=== PATIENT | female | born 1965 | race African-American/Black ===

== ENCOUNTER 2018-08-24 12:30 | Inpatient (IN) | payer OTHER ==
[2018-08-24 14:52] VITALS: BMI 46.7
--- NOTE | 2018-08-24 16:17 | HP ---
CIWA Score - Admission Criteria OASAS Guidelines: Admission for Medically Managed Detox: Requires at least one of the followin. CIWA greater than 12 2. Seizures within the past 24 hours 3. Delirium tremens within the past 24 hours 4. Hallucinations within the past 24 hours 5. Acute intervention needed for co occurring medical disorder 6. Acute intervention needed for co occurring psychiatric disorder 7. Severe withdrawal that cannot be handled at a lower level of care (continued vomiting, continued diarrhea, abnormal vital signs) requiring intravenous medication and/or fluids 8. Admission ROS BHS - HPI Allergies/Adverse Reactions: Allergies Allergy/AdvReac Type Severity Reaction Status Date / Time banana Allergy Verified 08/24/18 14:27 Penicillins Allergy Verified 08/24/18 14:28 tomato Allergy Verified 08/24/18 14:28 History of Present Illness: pt here requesting rehab from etoh and cocaine use , went to hospital after feeling dizy , reports drinking 1/5 or more daily x 3 months , prior use occasional , cocaine use - " I didn't use much " . completed detox @ [facility], has d/c paperwork indicating dates of admission 08/21/18 - 08/24/18 for dyspnea tobacco - 1/2 ppd every other day . pmhx : chronic back pain , asthma , hld , gerd , PShx : left shoulder rtx 2018 psych : PTSD , SAD , depression , denies current SI / HI , past suicide attempt 18 mo ago by choking Exam Limitations: No Limitations - Ebola screening Have you traveled outside of the country in the last 21 days: No Have you had contact with anyone from an Ebola affected area: No - Review of Systems Constitutional: No Symptoms Reported EENT: reports: No Symptoms Reported Respiratory: reports: Shortness of Breath Cardiac: reports: No Symptoms Reported GI: reports: No Symptoms Reported : reports: No Symptoms Reported Musculoskeletal: reports: See HPI, Back Pain Integumentary: reports: No Symptoms Reported Neuro: reports: No Symptoms reported Endocrine: reports: No Symptoms Reported Psychiatric: reports: Orientated x3, Agitated, Anxious Patient History - Smoking Cessation Smoking history: Current some day smoker Have you smoked in the past 12 months: Yes Hx Chewing Tobacco Use: No Initiated information on smoking cessation: No - Substances abused Alcohol Substance route: Oral Frequency: Daily Amount used: 05/20 vodka, 1 pt. rum, 1 pt. stephanie Age of first use: 13 Date of last use: 08/21/18 Cocaine Substance route: Smoking Frequency: Daily Amount used: $100 Age of first use: 15 Date of last use: 08/21/18 Crack Substance route: Smoking Frequency: 3-6 times per week Amount used: $400 Age of first use: 15 Date of last use: 08/21/18 Family Disease History - Family Disease History Family Disease History: Diabetes: Mother, Heart Disease: Father Admission Physical Exam [facility] - Vital Signs Vital Signs: Vital Signs - 24 hr 08/24/18 14:42 Temperature 98 F Pulse Rate 80 Respiratory 18 Rate Blood Pressure 129/86 - Physical General Appearance: Yes: Irritable HEENTM: Yes: EOMI, Hearing grossly Normal, Normocephalic, Normal Voice Respiratory: Yes: Chest Non-Tender, Lungs Clear, Decreased Breath Sounds Neck: Yes: No masses,lesions,Nodules, Trachea in good position Cardiology: Yes: Regular Rhythm, Regular Rate, S1, S2 Abdominal: Yes: Soft, Protuberent Genitourinary: Yes: Within Normal Limits Back: Yes: Normal Inspection, Muscle Spasm Musculoskeletal: Yes: Back pain, Muscle Pain, Other (using walker for ambulation) Extremities: Yes: Non-Tender Neurological: Yes: Fully Oriented, Alert, Motor Strength 5/5 Integumentary: Yes: Normal Color, Warm - Diagnostic (1) Alcohol abuse Current Visit: Yes Status: Acute (2) Cocaine abuse Current Visit: Yes Status: Chronic (3) Nicotine dependence Current Visit: Yes Status: Chronic Qualifiers: Nicotine product type: cigarettes Breathalyzer - Breathalyzer Breathalyzer: 0 Urine Drug Screen - Test Device Lot number: [id number] Expiration date: 04/14/20 - Control Is test valid?: Yes - Results Drug screen NEGATIVE: No Urine drug screen results: PK-Cocaine, BZO-Benzodiazepines Inpatient Rehab Admission - Rehab Decision to Admit Inpatient rehab admission?: Yes - Initial Determination Are CD services needed?: Yes Free of communicable disease: Yes Not in need of hospitalization: Yes - Rehab Admission Criteria Previous failed treatment: No Poor recovery environment: No Comorbidities: No Lacks judgement: Yes Patient is meeting Inpatient Rehab admission criteria:: Yes
[2018-08-24] MEDS ORDERED: MAGNESIUM HYDROX 2400MG/30ML ORAL SUSPENSION 30 ML CUP PO PRN (16:24)
[2018-08-24] MEDS ORDERED: MENTHOL/PHENOL 1 EACH UD MM PRN (16:24)
[2018-08-24] MEDS ORDERED: MAGNESIUM CITRATE 300 ML BOTTLE PO PRN (16:24)
[2018-08-24] MEDS ORDERED: MAG HYDROX/AL HYDROX/SIMETH 30 ML UNIT-DOSE CUP PO PRN (16:24)
[2018-08-24] MEDS ORDERED: ACETAMINOPHEN 325 MG TABLET (FP) PO PRN (16:24)
[2018-08-24] MEDS ORDERED: NICOTINE POLACRILEX 2 MG GUM BC PRN (16:24)
[2018-08-24] MEDS ORDERED: P-EPHED 60MG/TRIPROLIDI 2.5MG TABLET PO PRN (16:24)
[2018-08-24] MEDS ORDERED: guaiFENesin 200 MG/10 ML 10 ML UNIT-DOSE CUPS PO PRN (16:24)
[2018-08-24] MEDS ORDERED: ALBUTEROL SO4 0.083% IH SOL 2.5 MG/3 ML VIAL.NEB. NEB PRN (16:26)
[2018-08-24] MEDS ORDERED: TUBERCULIN PPD 5 TU/0.1ML VIAL ID ONE (18:02)
[2018-08-24] MEDS: CYCLOBENZAPRINE HCL 10 MG TABLET (FP) PO PRN (21:39)
[2018-08-24] MEDS: THIAMINE HCL 100 MG TABLET (FP) PO SCH (21:39)
[2018-08-24] MEDS: traZODone HCL 100 MG TABLET (FP) PO SCH (21:39)
[2018-08-24] MEDS: ATORVASTATIN CA 40 MG TABLET (FP) PO SCH (21:39)
[2018-08-24] MEDS: GABAPENTIN 300 MG CAPSULE (FP) PO SCH (21:39)
[2018-08-24] MEDS ORDERED: MELATONIN 5 MG TABLETS PO PRN (22:00)
[2018-08-24 23:32] LABS: PH,URINE 5.5 (5.0-8.0); URINE APPEARANCE Clear; URINE BILIRUBIN Negative (NEGATIVE); URINE COLOR Yellow; URINE GLUCOSE (UA) Negative (NEGATIVE); URINE KETONE Negative (NEGATIVE); URINE LEUK ESTERASE 1+ (NEGATIVE); URINE NITRITE Negative (NEGATIVE); URINE PROTEIN Negative (NEGATIVE); URINE UROBILINOGEN 0.2 mg/dL (0.2-1.0)
[2018-08-24 23:55] LABS: URINE BACTERIA FEW /hpf (NEGATIVE); URINE RBC 0 /hpf (0-4)
[2018-08-25] MEDS: GABAPENTIN 300 MG CAPSULE (FP) PO SCH ×3 (06:39→21:04)
[2018-08-25] MEDS: PANTOPRAZOLE 40 MG TABLET (FP) PO SCH (09:24)
[2018-08-25] MEDS: PRENATAL VITAMINS W/ FOLIC ACID TABLET (FP) PO SCH (09:24)
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
[2018-08-25 09:49] LABS: HEMATOCRIT 45.1 % (32.4-45.2); HEMOGLOBIN 14.9 GM/dL (10.7-15.3); MCH 32.6 pg (25.7-33.7); MCHC 33.1 g/dl (32.0-36.0); MEAN CELL VOLUME 98.5 fl (80-96); MEAN PLT VOLUME 9.3 fl (7.5-11.1); PLATELET COUNT 233 K/MM3 (134-434); RBC 4.58 M/mm3 (3.60-5.2); RDW 14.7 % (11.6-15.6); WHITE BLOOD COUNT 8.7 K/mm3 (4.0-10.0)
[2018-08-25] MEDS ORDERED: FAMOTIDINE 40 MG PO SCH (10:00)
[2018-08-25 10:13] LABS: ALBUMIN 3.7 g/dl (3.4-5.0); ALK PHOS 96 U/L (45-117); ANION GAP 7 MMOL/L (8-16); BILIRUBIN,TOTAL 0.5 mg/dL (0.2-1); BLOOD UREA NITROGEN 19 mg/dL (7-18); CALCIUM 9.1 mg/dL (8.5-10.1); CHLORIDE 106 mmol/L (98-107); CO2 29 mmol/L (21-32); CREATININE 0.9 mg/dL (0.55-1.3); GLUCOSE,RANDOM 153 mg/dL (74-106); POTASSIUM 4.1 mmol/L (3.5-5.1); SGOT/AST 17 U/L (15-37); SGPT/ALT 25 U/L (13-61); SODIUM 142 mmol/L (136-145); TOT PROT 6.8 g/dl (6.4-8.2)
--- NOTE | 2018-08-25 10:26 | EKG ---
Test Reason : Blood Pressure : / mmHG Vent. Rate : 077 BPM Atrial Rate : 077 BPM P-R Int : 124 ms QRS Dur : 086 ms QT Int : 406 ms P-R-T Axes : 056 056 051 degrees QTc Int : 459 ms NORMAL SINUS RHYTHM NORMAL ECG NO PREVIOUS ECGS AVAILABLE Confirmed by MAURIZIO BARRETT, MAX ([id number]) on 08/25/2018 10:26:44 AM Referred By: Confirmed By:MAX STEVEN MD
[2018-08-25] MEDS: SERTRALINE HCL 50 MG TABLET (FP) PO SCH (10:36)
[2018-08-25] MEDS: PERPHENAZINE 4 MG TABLET PO SCH ×2 (10:57→21:04)
--- NOTE | 2018-08-25 16:43 | PN ---
[facility] Progress Note Note: PATIENT SEEN FOR C/O BURNING AND PAIN UPON URINATION. PATIENT STATES URINE IS FOUL SMELLING (FISHY ODOR) AND REPORTS FREQUENT SMALL EPISODES OF URINATION. PATIENT DENIES FEVER AND BACK PAIN. Vital Signs Temperature 97.1 F L 08/25/18 06:54 Pulse Rate 86 08/25/18 06:54 Respiratory Rate 18 08/25/18 06:54 Blood Pressure 117/79 08/25/18 06:54 O2 Sat by Pulse Oximetry (%) Laboratory Tests 08/24/18 08/25/18 08/25/18 22:03 08:15 08:15 WBC 8.7 RBC 4.58 Hgb 14.9 Hct 45.1 MCV 98.5 H MCH 32.6 MCHC 33.1 RDW 14.7 Plt Count 233 MPV 9.3 Sodium 142 Potassium 4.1 Chloride 106 Carbon Dioxide 29 Anion Gap 7 L BUN 19 H Creatinine 0.9 Creat Clearance w eGFR 65.01 Random Glucose 153 H Calcium 9.1 Total Bilirubin 0.5 AST 17 ALT 25 Alkaline Phosphatase 96 Total Protein 6.8 Albumin 3.7 Urine Color Yellow Urine Appearance Clear Urine pH 5.5 Ur Specific [place] 1.020 Urine Protein Negative Urine Glucose (UA) Negative Urine Ketones Negative Urine Blood Negative Urine Nitrite Negative Urine Bilirubin Negative Urine Urobilinogen 0.2 Ur Leukocyte Esterase 1+ H Urine WBC (Auto) 2-5 Urine RBC (Auto) 0 U Epithel Cells (Auto) 2-5 Urine Bacteria (Auto) Few RPR Titer 08/25/18 08:15 WBC RBC Hgb Hct MCV MCH MCHC RDW Plt Count MPV Sodium Potassium Chloride Carbon Dioxide Anion Gap BUN Creatinine Creat Clearance w eGFR Random Glucose Calcium Total Bilirubin AST ALT Alkaline Phosphatase Total Protein Albumin Urine Color Urine Appearance Urine pH Ur Specific [place] Urine Protein Urine Glucose (UA) Urine Ketones Urine Blood Urine Nitrite Urine Bilirubin Urine Urobilinogen Ur Leukocyte Esterase Urine WBC (Auto) Urine RBC (Auto) U Epithel Cells (Auto) Urine Bacteria (Auto) RPR Titer Nonreactive PE: ALERT AND ORIENTED X 3 SKIN WARM AND DRY GI SOFT, NT, NO PELVIC TENDERNESS NEG CVAT EXT AMB WITH WALKER A/P: DYSURIA MALODOROUS URINE URINE CULTURE ORDERED ENCOURAGE ORAL FLUIDS START BACTRIM DS EMPIRICALLY ONE TAB BID X 3 DAYS CONTINUE TO MONITOR CLINICALLY
[2018-08-25] MEDS ORDERED: SULFAMETHOXAZOLE/TRIMETHOPRIM 800MG/160MG D.S. TABLET PO SCH (16:45)
[2018-08-25] MEDS: NAPROXEN 500 MG TABLET (FP) PO PRN (17:17)
[2018-08-25] MEDS ORDERED: PT OWN MED DRAWER 7, Y5N ONE (19:19)
[2018-08-25] MEDS: SULFAMETHOXAZOLE/TRIMETHOPRIM 800MG/160MG D.S. TABLET PO SCH (21:03)
[2018-08-25] MEDS: ATORVASTATIN CA 40 MG TABLET (FP) PO SCH (21:04)
[2018-08-25] MEDS: THIAMINE HCL 100 MG TABLET (FP) PO SCH (21:04)
[2018-08-25] MEDS: traZODone HCL 100 MG TABLET (FP) PO SCH (21:04)
[2018-08-26] MEDS: GABAPENTIN 300 MG CAPSULE (FP) PO SCH ×3 (06:44→21:53)
[2018-08-26] MEDS: ARTIFICIAL TEARS (POLYVINYL ALCOHOL) OPTH DROPS OU PRN (09:49)
[2018-08-26] MEDS: PRENATAL VITAMINS W/ FOLIC ACID TABLET (FP) PO SCH (09:50)
[2018-08-26] MEDS: SERTRALINE HCL 50 MG TABLET (FP) PO SCH (09:50)
[2018-08-26] MEDS: PANTOPRAZOLE 40 MG TABLET (FP) PO SCH (09:50)
[2018-08-26] MEDS: SULFAMETHOXAZOLE/TRIMETHOPRIM 800MG/160MG D.S. TABLET PO SCH ×2 (09:50→21:53)
[2018-08-26] MEDS: PERPHENAZINE 4 MG TABLET PO SCH ×2 (09:51→21:55)
[2018-08-26] MEDS: NAPROXEN 500 MG TABLET (FP) PO PRN (13:43)
[2018-08-26] MEDS: CYCLOBENZAPRINE HCL 10 MG TABLET (FP) PO PRN (13:43)
[2018-08-26] MEDS: ATORVASTATIN CA 40 MG TABLET (FP) PO SCH (21:53)
[2018-08-26] MEDS: traZODone HCL 100 MG TABLET (FP) PO SCH (21:53)
[2018-08-26] MEDS: THIAMINE HCL 100 MG TABLET (FP) PO SCH (21:55)
[2018-08-27] MEDS: GABAPENTIN 300 MG CAPSULE (FP) PO SCH ×3 (06:47→21:24)
[2018-08-27] MEDS: NAPROXEN 500 MG TABLET (FP) PO PRN ×2 (09:35→21:24)
[2018-08-27] MEDS: PANTOPRAZOLE 40 MG TABLET (FP) PO SCH (09:35)
[2018-08-27] MEDS: PRENATAL VITAMINS W/ FOLIC ACID TABLET (FP) PO SCH (09:35)
[2018-08-27] MEDS: SERTRALINE HCL 50 MG TABLET (FP) PO SCH (09:36)
[2018-08-27] MEDS: SULFAMETHOXAZOLE/TRIMETHOPRIM 800MG/160MG D.S. TABLET PO SCH ×2 (09:36→21:24)
[2018-08-27] MEDS: PERPHENAZINE 4 MG TABLET PO SCH ×2 (09:37→21:25)
[2018-08-27] MEDS ORDERED: PT OWN MED DRAWER 7, Y5N ONE ×2 (09:37)
[2018-08-27] MEDS: CYCLOBENZAPRINE HCL 10 MG TABLET (FP) PO PRN (21:24)
[2018-08-27] MEDS: THIAMINE HCL 100 MG TABLET (FP) PO SCH (21:24)
[2018-08-27] MEDS: traZODone HCL 100 MG TABLET (FP) PO SCH (21:24)
[2018-08-27] MEDS: ATORVASTATIN CA 40 MG TABLET (FP) PO SCH (21:24)
[2018-08-28] MEDS: GABAPENTIN 300 MG CAPSULE (FP) PO SCH ×3 (06:45→21:25)
[2018-08-28] MEDS ORDERED: PT OWN MED DRAWER 7, Y5N ONE ×2 (08:28→21:29)
[2018-08-28] MEDS: ARTIFICIAL TEARS (POLYVINYL ALCOHOL) OPTH DROPS OU PRN (09:33)
[2018-08-28] MEDS: SULFAMETHOXAZOLE/TRIMETHOPRIM 800MG/160MG D.S. TABLET PO SCH (09:34)
[2018-08-28] MEDS: PANTOPRAZOLE 40 MG TABLET (FP) PO SCH (09:34)
[2018-08-28] MEDS: SERTRALINE HCL 50 MG TABLET (FP) PO SCH (09:34)
[2018-08-28] MEDS: PRENATAL VITAMINS W/ FOLIC ACID TABLET (FP) PO SCH (09:34)
[2018-08-28] MEDS: PERPHENAZINE 4 MG TABLET PO SCH ×2 (09:34→21:30)
--- NOTE | 2018-08-28 14:02 | PN ---
[facility] Progress Note Note: PATIENT SEEN TO FOLLOW UP DYSURIA. PATIENT STATES SHE FEELS BETTER. DENIES VAGINAL DISCHARGE AND BURNING UPON URINATION. Vital Signs Temperature 98.0 F 08/27/18 07:03 Pulse Rate 85 08/27/18 07:03 Respiratory Rate 18 08/28/18 03:30 Blood Pressure 131/88 08/27/18 07:03 O2 Sat by Pulse Oximetry (%) Laboratory Tests 08/24/18 08/25/18 08/25/18 22:03 08:15 08:15 WBC 8.7 RBC 4.58 Hgb 14.9 Hct 45.1 MCV 98.5 H MCH 32.6 MCHC 33.1 RDW 14.7 Plt Count 233 MPV 9.3 Sodium 142 Potassium 4.1 Chloride 106 Carbon Dioxide 29 Anion Gap 7 L BUN 19 H Creatinine 0.9 Creat Clearance w eGFR 65.01 Random Glucose 153 H Calcium 9.1 Total Bilirubin 0.5 AST 17 ALT 25 Alkaline Phosphatase 96 Total Protein 6.8 Albumin 3.7 Urine Color Yellow Urine Appearance Clear Urine pH 5.5 Ur Specific [place] 1.020 Urine Protein Negative Urine Glucose (UA) Negative Urine Ketones Negative Urine Blood Negative Urine Nitrite Negative Urine Bilirubin Negative Urine Urobilinogen 0.2 Ur Leukocyte Esterase 1+ H Urine WBC (Auto) 2-5 Urine RBC (Auto) 0 U Epithel Cells (Auto) 2-5 Urine Bacteria (Auto) Few RPR Titer 08/25/18 08:15 WBC RBC Hgb Hct MCV MCH MCHC RDW Plt Count MPV Sodium Potassium Chloride Carbon Dioxide Anion Gap BUN Creatinine Creat Clearance w eGFR Random Glucose Calcium Total Bilirubin AST ALT Alkaline Phosphatase Total Protein Albumin Urine Color Urine Appearance Urine pH Ur Specific [place] Urine Protein Urine Glucose (UA) Urine Ketones Urine Blood Urine Nitrite Urine Bilirubin Urine Urobilinogen Ur Leukocyte Esterase Urine WBC (Auto) Urine RBC (Auto) U Epithel Cells (Auto) Urine Bacteria (Auto) RPR Titer Nonreactive PE; ALERT AND ORIENTED X 3 SKIN WARM AND DRY GI SOFT, NT, ND NEG CVAT EXT AMB AD ROSALIA WITH WALKER A/P: DYSURIA RESOLVED ENCOURAGE FLUIDS BACTRIM CONTINUED ORDERED URINE CULTURE LESS THAN 10,000 COLONIES NO FURTHER TREATMENT WARRANTED
[2018-08-28] MEDS: traZODone HCL 100 MG TABLET (FP) PO SCH (21:25)
[2018-08-28] MEDS: CYCLOBENZAPRINE HCL 10 MG TABLET (FP) PO PRN (21:25)
[2018-08-28] MEDS: ATORVASTATIN CA 40 MG TABLET (FP) PO SCH (21:25)
[2018-08-28] MEDS: THIAMINE HCL 100 MG TABLET (FP) PO SCH (21:25)
[2018-08-28] MEDS: NAPROXEN 500 MG TABLET (FP) PO PRN (21:26)
[2018-08-29] MEDS: GABAPENTIN 300 MG CAPSULE (FP) PO SCH ×3 (06:33→21:25)
[2018-08-29] MEDS ORDERED: PT OWN MED DRAWER 7, Y5N ONE (08:41)
[2018-08-29] MEDS: NAPROXEN 500 MG TABLET (FP) PO PRN ×2 (09:53→21:25)
[2018-08-29] MEDS: PRENATAL VITAMINS W/ FOLIC ACID TABLET (FP) PO SCH (10:28)
[2018-08-29] MEDS: SERTRALINE HCL 50 MG TABLET (FP) PO SCH (10:29)
[2018-08-29] MEDS: PERPHENAZINE 4 MG TABLET PO SCH ×2 (10:29→21:25)
[2018-08-29] MEDS: PANTOPRAZOLE 40 MG TABLET (FP) PO SCH (10:29)
[2018-08-29] MEDS: traZODone HCL 100 MG TABLET (FP) PO SCH (21:25)
[2018-08-29] MEDS: THIAMINE HCL 100 MG TABLET (FP) PO SCH (21:25)
[2018-08-29] MEDS: CYCLOBENZAPRINE HCL 10 MG TABLET (FP) PO PRN (21:25)
[2018-08-29] MEDS: ATORVASTATIN CA 40 MG TABLET (FP) PO SCH (21:25)
[2018-08-30] MEDS: GABAPENTIN 300 MG CAPSULE (FP) PO SCH ×3 (06:39→21:40)
[2018-08-30] MEDS ORDERED: PT OWN MED DRAWER 7, Y5N ONE ×2 (08:52→13:41)
[2018-08-30] MEDS: PRENATAL VITAMINS W/ FOLIC ACID TABLET (FP) PO SCH (09:47)
[2018-08-30] MEDS: PERPHENAZINE 4 MG TABLET PO SCH ×2 (09:47→21:40)
[2018-08-30] MEDS: SERTRALINE HCL 50 MG TABLET (FP) PO SCH (09:48)
[2018-08-30] MEDS: PANTOPRAZOLE 40 MG TABLET (FP) PO SCH (09:48)
[2018-08-30] MEDS: NAPROXEN 500 MG TABLET (FP) PO PRN ×2 (09:49→21:40)
[2018-08-30] MEDS: CYCLOBENZAPRINE HCL 10 MG TABLET (FP) PO PRN ×2 (09:49→21:40)
[2018-08-30] MEDS ORDERED: MINERAL OIL/PETROLAT/WATER TOPICAL CREAM 454 GM JAR TP PRN (10:35)
[2018-08-30] MEDS ORDERED: MINERAL OIL/PETROLAT/WATER TOPICAL CREAM 113 GM JAR TP PRN (11:15)
[2018-08-30] MEDS: THIAMINE HCL 100 MG TABLET (FP) PO SCH (21:39)
[2018-08-30] MEDS: ATORVASTATIN CA 40 MG TABLET (FP) PO SCH (21:40)
[2018-08-30] MEDS: traZODone HCL 100 MG TABLET (FP) PO SCH (21:40)
[2018-08-31] MEDS: GABAPENTIN 300 MG CAPSULE (FP) PO SCH ×3 (06:42→21:40)
[2018-08-31] MEDS ORDERED: PT OWN MED DRAWER 7, Y5N ONE ×2 (08:40→21:43)
[2018-08-31] MEDS: PERPHENAZINE 4 MG TABLET PO SCH ×2 (09:39→21:42)
[2018-08-31] MEDS: PRENATAL VITAMINS W/ FOLIC ACID TABLET (FP) PO SCH (09:39)
[2018-08-31] MEDS: SERTRALINE HCL 50 MG TABLET (FP) PO SCH (09:39)
[2018-08-31] MEDS: PANTOPRAZOLE 40 MG TABLET (FP) PO SCH (09:39)
[2018-08-31] MEDS: NAPROXEN 500 MG TABLET (FP) PO PRN ×2 (09:40→21:41)
[2018-08-31] MEDS: LIDOCAINE 5% TOPICAL PATCH TP SCH (12:32)
[2018-08-31] MEDS: traZODone HCL 100 MG TABLET (FP) PO SCH (21:40)
[2018-08-31] MEDS: THIAMINE HCL 100 MG TABLET (FP) PO SCH (21:40)
[2018-08-31] MEDS: ATORVASTATIN CA 40 MG TABLET (FP) PO SCH (21:41)
[2018-08-31] MEDS: CYCLOBENZAPRINE HCL 10 MG TABLET (FP) PO PRN (21:41)
[2018-08-31] MEDS ORDERED: LIDOCAINE PATCH REMOVAL MC SCH (22:00)
[2018-09-01] MEDS: GABAPENTIN 300 MG CAPSULE (FP) PO SCH (06:21)
[2018-09-01 07:06] VITALS: BP 111/77; PULSE 80; TEMP 97.9
[2018-09-01] MEDS: PERPHENAZINE 4 MG TABLET PO SCH (09:30)
[2018-09-01] MEDS: PANTOPRAZOLE 40 MG TABLET (FP) PO SCH (09:30)
[2018-09-01] MEDS: PRENATAL VITAMINS W/ FOLIC ACID TABLET (FP) PO SCH (09:30)
[2018-09-01] MEDS: LIDOCAINE 5% TOPICAL PATCH TP SCH (09:30)
[2018-09-01] MEDS: SERTRALINE HCL 50 MG TABLET (FP) PO SCH (09:30)
--- NOTE | 2018-09-01 11:21 | PN ---
[facility] Progress Note Note: PT REQUESTED FOR EARLY DISCHARGE FROM REHAB TODAY. PT MET WITH MS HNERIQUE DAVID, CLINICAL SUPPORT NURSE AND PT HAS BEEN REFERRED BACK TO [facility] OPD PROGRAM. REPORTS SHE HAS A PCP, DR. MAEGAN MEDEROS WHO SHE WILL BE SEEING TODAY AFTER DISCHARGE HERE. PT REPORTS SHE HAS ALL HER MEDS DOWN IN HER SECURITY PROPERTY. ALERT O X 3. DENIES S/H/I. Home Medications Medication Instructions Recorded Atorvastatin Ca [Lipitor] 40 mg PO HS 08/24/18 Cyclobenzaprine HCl [Flexeril 10 10 mg PO BID PRN 08/24/18 mg] Dextran 70/Hypromellose 30 ml OP PRN 08/24/18 [Artificials Tears Drops] Diclofenac Sodium 75 mg PO BID 08/24/18 Famotidine [Heartburn Prevention] 40 mg PO DAILY 08/24/18 Gabapentin 300 mg PO TID 08/24/18 Naproxen [Naprosyn] 500 mg PO PRN 08/24/18 Perphenazine 8 mg PO BID 08/24/18 Sertraline HCl 100 mg PO DAILY 08/24/18 Tramadol HCl 50 mg PO TID 08/24/18 traZODone HCL [Trazodone HCl] 100 mg PO HS 08/24/18 Vital Signs 09/01/18 09/01/18 03:30 06:30 Temperature 97.9 F Pulse Rate 80 Respiratory 18 18 Rate Blood Pressure 111/77 Laboratory Tests 08/24/18 08/25/18 08/25/18 22:03 08:15 08:15 WBC 8.7 RBC 4.58 Hgb 14.9 Hct 45.1 MCV 98.5 H MCH 32.6 MCHC 33.1 RDW 14.7 Plt Count 233 MPV 9.3 Sodium 142 Potassium 4.1 Chloride 106 Carbon Dioxide 29 Anion Gap 7 L BUN 19 H Creatinine 0.9 Creat Clearance w eGFR 65.01 POC Glucometer Random Glucose 153 H Calcium 9.1 Total Bilirubin 0.5 AST 17 ALT 25 Alkaline Phosphatase 96 Total Protein 6.8 Albumin 3.7 Urine Color Yellow Urine Appearance Clear Urine pH 5.5 Ur Specific [place] 1.020 Urine Protein Negative Urine Glucose (UA) Negative Urine Ketones Negative Urine Blood Negative Urine Nitrite Negative Urine Bilirubin Negative Urine Urobilinogen 0.2 Ur Leukocyte Esterase 1+ H Urine WBC (Auto) 2-5 Urine RBC (Auto) 0 U Epithel Cells (Auto) 2-5 Urine Bacteria (Auto) Few RPR Titer 08/25/18 08/29/18 08/30/18 08:15 06:29 06:38 WBC RBC Hgb Hct MCV MCH MCHC RDW Plt Count MPV Sodium Potassium Chloride Carbon Dioxide Anion Gap BUN Creatinine Creat Clearance w eGFR POC Glucometer 108 91 Random Glucose Calcium Total Bilirubin AST ALT Alkaline Phosphatase Total Protein Albumin Urine Color Urine Appearance Urine pH Ur Specific [place] Urine Protein Urine Glucose (UA) Urine Ketones Urine Blood Urine Nitrite Urine Bilirubin Urine Urobilinogen Ur Leukocyte Esterase Urine WBC (Auto) Urine RBC (Auto) U Epithel Cells (Auto) Urine Bacteria (Auto) RPR Titer Nonreactive NAD MEDICALLY STABLE PLAN:PT D/C'D TODAY FOLLOW UP WITH CD AFTERCARE RECOMMENDED FOLLOW UP WITH YOUR PCP DR. MAEGAN MEDEROS FOR MEDICAL MANAGEMENT TODAY PLANNED.
== END 2018-09-01 09:36 | disposition home or self-care (01) | DRG 772 ==
LOC: YASAS 12:30 → Y3E 17:32 → UNDOADMIN 17:32 → Y3E 17:52 → UNDODISIN 08-26 20:02
PROVIDERS: ADMIT Neuromusculoskeletal Medicine & OMM; ATTEND Neuromusculoskeletal Medicine & OMM
PROC: HZ42ZZZ Group Counseling for Substance Abuse Treatment, Cognitive-Behavioral (ICD-10-PCS; principal; 2018-08-24)
DX: F10.20 Alcohol dependence, uncomplicated (principal); F14.20 Cocaine dependence, uncomplicated; F17.210 Nicotine dependence, cigarettes, uncomplicated; F25.9 Schizoaffective disorder, unspecified; F43.10 Post-traumatic stress disorder, unspecified; J45.909 Unspecified asthma, uncomplicated; E78.5 Hyperlipidemia, unspecified; K21.9 Gastro-esophageal reflux disease without esophagitis; R30.0 Dysuria; R82.90 Unspecified abnormal findings in urine
CPT/HCPCS: 36415; 80053; 81003; 82962; 85027; 86593; 87086; 93005; 93010